=== PATIENT | female | born 1980 | race Caucasian/White ===

== ENCOUNTER 2022-07-13 11:39 | Emergency (ER) | payer BC ==
[~2022-07-13] VITALS: Ht 172.7 cm; Wt 70.0 kg
[2022-07-13] MEDS ORDERED: HYDROCODONE/ACETAMINOPHEN 5/325MG TABLET PO STA (11:51)
[2022-07-13] MEDS ORDERED: TETANUS, DIPHTHERIA, PERTUSSIS VAC/PF 0.5ML (>10YR OLD) IM ONE (12:00)
[2022-07-13] MEDS ORDERED: AMOXICILLIN/POTASSIUM CLAVULANATE 875/125MG TAB PO ONE (12:00)
[2022-07-13] MEDS ORDERED: LIDOCAINE HCL 1% 20ML VIAL (Pyxis) INJ INFIL ONE ×2 (12:15→15:45)
[2022-07-13] MEDS ORDERED: LORAZEPAM 0.5MG TABLET PO ONE (12:45)
[2022-07-13] MEDS ORDERED: HYDROMORPHONE HCL/PF 2MG/ML CPJ IV ONE ×2 (13:45→15:45)
[2022-07-13] MEDS ORDERED: AMPICILLIN SOD/SULBACTAM NA 3 G in SODIUM CHLORIDE 0.9% 100 ML IV SCH (15:00)
[2022-07-13] MEDS ORDERED: AMOX1TAB16 MT (15:59)
[2022-07-13] MEDS ORDERED: HYDR-4001 MT ×2 (15:59→16:05)
[2022-07-13 16:00] VITALS: BP 122/88
[2022-07-13] MEDS ORDERED: T3 PO (16:06)
[2022-07-13] MEDS ORDERED: IBUP-2030 MT (16:07)
== END 2022-07-13 16:30 | disposition home or self-care (01) ==
LOC: ER 12:34
DX: S51.852A Open bite of left forearm, initial encounter (principal); W54.0XXA Bitten by dog, initial encounter; Y93.89 Activity, other specified; Y92.89 Other specified places as the place of occurrence of the external cause; Y99.8 Other external cause status
CPT/HCPCS: 12002; 73090; 90471; 90715; 96365; 96375; 96376; 99284; J1170; J3490; Z7610